=== PATIENT | male | born 1975 | race Caucasian/White ===

== ENCOUNTER 2018-06-29 06:57 | Day surgery (SDC) | payer MEDICAID ==
[2018-06-29] MEDS ORDERED: Propofol 10 mg/ml Inj (20 ML) ONE (09:54)
--- NOTE | 2018-06-29 09:56 | CP.SDSHP ---
Same Day Surgery H & P - History Proposed Procedure: EGD/Biopsy Pre-Op Diagnosis: Abdominal pain - Previous Medical/Surgical History Cardiac: Hypertension Pulmonary: Asthma Comments: Hyperlipidemia Previous Surgical History: cholecystectomy - Allergies Allergies: Allergies No Known Allergies Allergy (Verified 06/29/18 07:51) - Current Medications Current Medications: reviewed, per reconciliation - Physical Exam General Appearance: wdwn nad Vital Signs: Vital Signs 06/29/18 07:45 Temperature 97.5 F L Pulse Rate 75 Respiratory 19 Rate Blood Pressure 127/90 O2 Sat by Pulse 97 Oximetry Mental Status: Alert & Oriented x3 Neuro: WNL Heart: WNL Lungs: WNL GI: WNL - {Optional Preform as Required} Abdomen: WNL - Impression Impression: Abdominal pain Pt. Evaluated Today:Candidate for Anesthesia & Procedure: Yes - Date & Time Date: 06/29/18 Time: 09:56 Short Stay Discharge - Short Stay Discharge Admitting Diagnosis/Reason for Visit: ESOPHAGEAL REFLUX Disposition: HOME/ ROUTINE
[2018-06-29] MEDS ORDERED: Lactated Ringer's 1,000 ML IV ONE (10:00)
[2018-06-29 10:25] VITALS: TEMP 98.2; O2SAT 98
[2018-06-29 13:11] VITALS: BP 132/96; RESP 16
[2018-06-29 13:17] VITALS: PULSE 75
== END 2018-06-29 11:15 | disposition home or self-care (01) ==
LOC: C.ENDO 06:57
PROVIDERS: ATTEND Internal Medicine Gastroenterology
DX: K21.9 Gastro-esophageal reflux disease without esophagitis (principal); K29.70 Gastritis, unspecified, without bleeding
CPT/HCPCS: 43239; 88305; J2001; J2704; J7120